=== PATIENT | male | born 1980 | race Caucasian/White ===

== ENCOUNTER → 2016-05-18 | Outpatient (CLI) | payer OTHER ==
[~2016-05-18] MED LIST: MAGNEVIST IV PRN
--- NOTE | 2016-05-18 10:52 | DIAGNOSTIC IMAGING REPORT ---
ORBITS FOR MRI CLINICAL HISTORY: History of metal grinding. COMPARISON STUDY: No previous studies for comparison. FINDINGS: No orbital metallic foreign bodies are identified. IMPRESSION: No orbital metallic foreign bodies. Electronically signed by: Javed Delgado M.D. 05/18/2016 10:50 AM
--- NOTE | 2016-05-18 11:36 | DIAGNOSTIC IMAGING REPORT ---
FLUOROSCOPICALLY GUIDED LEFT SHOULDER ARTHROGRAM PRIOR TO MRI CLINICAL HISTORY: Left shoulder pain. Evaluate for labral tear. PROCEDURE: The procedure, risks and benefits were discussed with the patient. Informed written consent was obtained. The procedure was performed by Dr. Delgado following a timeout. Skin overlying the left glenohumeral joint was prepped and draped in sterile fashion and local anesthesia was achieved with 1% lidocaine. Under intermittent fluoroscopic guidance, a 2 1/2 inch, 22-gauge needle was directed into the left glenohumeral joint. Positioning within the joint space was confirmed with injection of a small amount of contrast. At this time, 9 cc of a mixture of 0.1 cc of gadolinium, 10 cc of Optiray 300 cc and 10 cc of normal saline was injected into the left glenohumeral joint. The needle was removed. The patient tolerated the procedure well and no immediate complications were evident. The patient was transported to MRI. Fluoroscopy time was 31 seconds. One fluoroscopic image was obtained. IMPRESSION: Fluoroscopically guided left shoulder arthrogram prior to MRI. Electronically signed by: Jvaed Delgado M.D. 05/18/2016 11:34 AM
--- NOTE | 2016-05-18 13:00 | DIAGNOSTIC IMAGING REPORT ---
MR ARTHROGRAM OF THE LEFT SHOULDER CLINICAL HISTORY: Left shoulder pain. COMPARISON STUDY: Radiographs of left shoulder dated 04/28/2016. TECHNIQUE: Following the intra-articular administration of gadolinium contrast, MR arthrogram was performed utilizing various T1 and T2 weighted sequences in the axial, sagittal, coronal planes. FINDINGS: Rotator cuff: There is tendinopathy of the supraspinatous tendon with a large full-thickness rim rent tear. The tear measures at least 11 mm in length and at least 7 mm in AP diameter. There is no significant musculotendinous retraction. There is mild tendinopathy of the infraspinatus tendon which appears intact. The teres minor and subscapularis tendons are preserved. There is subacromial and subdeltoid bursal fluid. There is productive degenerative change with marrow edema identified at the acromioclavicular joint. Biceps tendon: The long head of the biceps tendon is normal in signal intensity and located within the bicipital groove. The anchor is maintained. Labrum: There is a SLAP tear of the gland labrum. There is also truncation/fraying involving the posterior/inferior labrum likely related to chronic tearing. Shoulder joint: The joint spaces well distended with intra-articular contrast. The articular cartilage over the glenoid is well maintained. There is no MRI evidence of fracture. There is arthritic change with mild marrow edema seen in the greater tuberosity of the humeral head. Musculature and soft tissues: There is mild edema present within body of the supraspinatous muscle. The musculature of the shoulder is otherwise normal in bulk and signal intensity. No atrophy is seen. IMPRESSION: 1. There is a large full-thickness rim rent tear of the supraspinatous tendon. There is no musculotendinous retraction or muscular atrophy. Mild intramuscular edema is noted within the body of supraspinatous. 2. There is a SLAP tear of the glenoid labrum. There is also truncation/fraying of the posterior and inferior labrum, likely related to chronic/degenerative tearing. 3. There is mild overgrowth with significant marrow edema involving the acromio clavicular joint. Edema is greatest in the distal clavicle and this may represent a chronic/repetitive stress injury. 4. Additional changes as above. Electronically signed by: Eren Roberts M.D. 05/18/2016 12:58 PM
== END ==
LOC: C.RADBC 05-13 15:38 → C.MRIBC 10:32
PROVIDERS: ATTEND Orthopaedic Surgery
DX: M25.512 Pain in left shoulder (principal)